=== PATIENT | female | born 1940 | race Caucasian/White ===

== ENCOUNTER 2017-03-07 06:01 | Emergency (ER) | payer OTHER, MEDICAID ==
[~2017-03-07] VITALS: Ht 175.3 cm; Wt 81.7 kg
[~2017-03-07 06:01] MED LIST: ARICEPT 5 MG TAB5 MG PO; COZAAR 50 MG TA50 M2 PO; MELATONIN5 M1 PO; NAMENDA 10 MG T10 MG PO; OMEPRAZOLE40 MG PO; ZYPREXA2.5 MG PO
[2017-03-07 06:44] LABS: ABSOLUTE BASOPHILS 0.1 thou/uL (0.0-0.2); ABSOLUTE EOSINOPHILS 0.2 thou/uL (0.0-0.7); ABSOLUTE LYMPHOCYTES 3.7 thou/uL (0.8-5.3); ABSOLUTE MONOCYTES 0.7 thou/uL (0.0-1.2); ABSOLUTE NEUTROPHILS 7.6 thou/uL (1.6-8.1); BASOPHILS 0.7 %; EOSINOPHILS 1.4 %; HEMATOCRIT 44.7 % (37.0-47.0); HEMOGLOBIN 14.5 gm/dL (12.0-15.0); MCH 26.8 pg (26.0-34.0); MCHC 32.4 g/dL (28.0-37.0); MCV 82.7 fL (80.0-100.0); MONOCYTES 5.9 %; MPV 7.7 fl. (7.2-11.1); NUCLEATED RBCS 0 /100WBC; PLATELET COUNT* 311 thou/uL (150-400); RDW-CV 15.6 % (10.5-14.5); WBC 12.2 thou/uL (4.0-11.0)
[2017-03-07 06:52] LABS: INR 1.1; PROTIME 10.3 Seconds (9.20-11.50)
[2017-03-07 06:53] LABS: ANION GAP 12 mmol/L (7-16); BUN 11 mg/dL (7-18); CALCIUM 8.7 mg/dL (8.5-10.1); CHLORIDE 108 mmol/L (98-107); CO2 23 mmol/L (21-32); GLUCOSE 180 mg/dL (70-99); POTASSIUM 3.2 mmol/L (3.5-5.1); SODIUM 143 mmol/L (136-145)
[2017-03-07 07:03] LABS: ALBUMIN 3.2 g/dL (3.4-5.0); ALKALINE PHOSPHATASE 85 U/L (46-116); LIPASE 123 U/L (73-393); NT-PRO BRAIN NAT PEPTIDE 60 pg/mL (<300); SGOT 16 U/L (15-37); SGPT 21 U/L (30-65); TOTAL BILIRUBIN 0.4 mg/dL (<0.1-1.0); TOTAL PROTEIN 6.6 g/dL (6.4-8.2); TROPONIN-I LEVEL <0.06 ng/mL (<0.06)
[2017-03-07 08:12] LABS: URINE BILIRUBIN NEGATIVE (Negative); URINE BLOOD NEGATIVE (Negative); URINE CLARITY CLEAR; URINE COLOR YELLOW; URINE GLUCOSE-RANDOM NEGATIVE (Negative); URINE KETONES NEGATIVE (Negative); URINE LEUKOCYTES-REFLEX NEGATIVE (Negative); URINE NITRITE-REFLEX NEGATIVE (Negative); URINE PROTEIN TRACE (Negative); URINE SPECIFIC GRAVITY >= 1.030 (1.005-1.030); URINE UROBILINOGEN 0.2 E.U./dl (0.2-1.0)
[2017-03-07 13:24] VITALS: BP 120/75
--- NOTE | 2017-03-08 14:09 | EKG ---
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 Oates : 1940 Requested By: Wayne Rabago Order Number: [id number] MD: Alejo Kincaid Measurements Intervals [place] Rate: 124 P: 49 NH: 159 QRS: -47 QRSD: 89 T: 35 QT: 330 QTc: 474 Interpretive Statements Sinus tachycardia Left anterior fascicular block Low voltage, extremity leads Abnormal R-wave progression, late transition Compared to ECG 02/15/2009 10:14:15 Left anterior fascicular block now present Low QRS voltage now present Heart rate has increased Electronically Signed On 03-08-2017 14:09:06 [employer] by Alejo Kincaid [email or web address] <ELECTRONICALLY SIGNED> By: Alejo Kincaid MD, [facility] 03/08/17 [id number] [id number] Alejo Kincaid MD, [facility] /EPI
== END 2017-03-07 13:27 | disposition home or self-care (01) ==
LOC: M.ERS 06:01
PROVIDERS: Emergency Medicine; Personal Emergency Response Attendant
DX: R56.9 Unspecified convulsions (principal)

== ENCOUNTER 2018-03-01 17:50 | Emergency (ER) | payer OTHER, MEDICAID ==
[~2018-03-01] VITALS: Ht 167.6 cm; Wt 54.2 kg
[2018-03-01] MEDS ORDERED: PEPCID20 MG PO (18:10)
[2018-03-01] MEDS ORDERED: ATIVAN0.5 MG PO (18:10)
[2018-03-01] MEDS ORDERED: DEPAKOTE ER250 MG PO (18:10)
[2018-03-01] MEDS ORDERED: MELATONIN3 M1 PO (18:11)
[2018-03-01] MEDS ORDERED: METAMUCIL1 EAC1 PO (18:11)
[2018-03-01] MEDS ORDERED: REMERON15 MG PO (18:12)
[2018-03-01] MEDS ORDERED: FEVERALL JR 32325 M1 RECTAL (18:13)
[2018-03-01] MEDS ORDERED: TYLENOL325 MG PO (18:14)
[2018-03-01] MEDS ORDERED: MILK OF MA2400 MG/10 PO (18:15)
[2018-03-01] MEDS ORDERED: MYLANTA PO (18:15)
[2018-03-01] MEDS ORDERED: NYSTOP POWDER TOP (18:16)
[2018-03-01] MEDS ORDERED: NORCO 5-325 TA1 EACH PO (19:13)
[2018-03-01 19:37] VITALS: BP 106/75
== END 2018-03-01 19:37 | disposition home or self-care (01) ==
LOC: M.ERS 17:50
DX: S01.01XA Laceration without foreign body of scalp, initial encounter (principal); F03.90 Unspecified dementia, unspecified severity, without behavioral disturbance, psychotic disturbance, mood disturbance, and anxiety; Z90.710 Acquired absence of both cervix and uterus; Z86.73 Personal history of transient ischemic attack (TIA), and cerebral infarction without residual deficits; W18.39XA Other fall on same level, initial encounter; Y93.89 Activity, other specified; Y92.89 Other specified places as the place of occurrence of the external cause; Y99.8 Other external cause status